=== PATIENT | female | born 1955 | race Caucasian/White ===

== ENCOUNTER 2021-09-08 07:11 | Emergency (ER) | payer OTHER ==
[2021-09-08 08:00] LABS: HEMOGLOBIN 13.2 gm/dl (12.3-15.3); RED BLOOD COUNT 4.42 M/UL (4.00-5.10); WHITE BLOOD COUNT 3.7 K/UL (4.5-11.0)
[2021-09-08 08:38] LABS: BUN/CREATININE RATIO 13 (0-10)
[2021-09-08] MEDS ORDERED: OMNICEF 300 MG300 MG PO (10:54)
== END 2021-09-08 10:58 | disposition home or self-care (01) ==
LOC: ER1 07:11
PROVIDERS: Family Medicine
DX: N39.0 Urinary tract infection, site not specified (principal); Z79.01 Long term (current) use of anticoagulants; M54.6 Pain in thoracic spine; F17.200 Nicotine dependence, unspecified, uncomplicated
CPT/HCPCS: 71045; 74018; 80048; 81001; 82550; 82553; 83874; 84484; 85025; 87077; 87086; 87186; 96374; 96375; 99283; J0696; J1885

== ENCOUNTER → 2022-02-22 | Outpatient (CLI) | payer MEDICARE, OTHER ==
[~2022-02-22] MED LIST: OMNICEF 300 MG300 MG PO
== END ==
LOC: EXRD 11:15
DX: Z78.0 Asymptomatic menopausal state (principal); M85.852 Other specified disorders of bone density and structure, left thigh
CPT/HCPCS: 77080